=== PATIENT | female | born 1990 | race African-American/Black ===

== ENCOUNTER 2020-07-11 22:28 | Emergency (ER) | payer OTHER ==
[2020-07-11] MEDS ORDERED: predniSONE 20 MG TAB ONE (22:42)
[2020-07-11] MEDS ORDERED: Ventolin HFA Inhaler 60 PUFF INHALER INH PRN (22:45)
[2020-07-11] MEDS ORDERED: Ventolin HFA Inhaler 60 PUFF INHALER INH SCH (23:00)
== END 2020-07-12 01:44 | disposition home or self-care (01) ==
LOC: CSHERS 22:28
DX: J98.01 Acute bronchospasm (principal); D64.9 Anemia, unspecified; F17.210 Nicotine dependence, cigarettes, uncomplicated; Z79.899 Other long term (current) drug therapy
CPT/HCPCS: 71045; 93005; 94664; 94760; J7512